=== PATIENT | female | born 1980 | race American Indian/Alaskan Native ===

== ENCOUNTER 2019-05-23 15:29 | Emergency (ER) | payer OTHER ==
[~2019-05-23] VITALS: Ht 154.9 cm; Wt 65.9 kg
[2019-05-23 16:30] LABS: BASOPHILS % (AUTO) 0.4 % (0-1); EOSINOPHILS # (AUTO) 0.1 X10'3 (0-0.9); EOSINOPHILS % (AUTO) 0.5 % (0-6); HEMATOCRIT 38.2 % (35.0-45.0); HEMOGLOBIN 12.7 g/dl (12.0-16.0); LYMPHOCYTES # (AUTO) 1.8 X10'3 (1.1-4.8); LYMPHOCYTES % (AUTO) 15.2 % (21-51); MEAN CORPUSCULAR HEMOGLOBIN 28.4 PG (27.0-31.0); MEAN CORPUSCULAR HGB CONC 33.3 g/dL (33.0-36.5); MEAN CORPUSCULAR VOLUME 85.5 FL (78-98); MEAN PLATELET VOLUME 8.2 FL (7.4-10.4); MONOCYTES # (AUTO) 0.9 X10'3 (0-0.9); MONOCYTES % (AUTO) 7.3 % (2-12); NEUTROPHILS # (AUTO) 8.9 X10'3 (1.8-7.7); NEUTROPHILS % (AUTO) 76.6 % (42-75); PLATELET COUNT 380 X10'3 (140-440); RED BLOOD COUNT 4.47 X10'6 (4.20-5.60); RED CELL DISTRIBUTION WIDTH 17.1 % (11.5-14.5); WHITE BLOOD COUNT 11.7 X10'3 (4.5-11.0)
--- NOTE | 2019-05-23 16:34 | NUR ---
Patient stating she hears her children calling in the room next to her. Patient states she is not crazy. Patient can't tell me when she last saw her girls. Patient states she is homeless and she lives in [place]. RN asked for a phone number of any of her relatives. Patient state they have all . RN asked patient when was the last time she saw her girls. Patient denies psych history and got upset because she really believes her girls are calling for her.
[2019-05-23 16:42] LABS: ALANINE AMINOTRANSFERASE 21 U/L (12-78); ALBUMIN 3.5 G/DL (3.4-5.0); ALKALINE PHOSPHATASE 92 IU/L (46-116); ANION GAP 10 (8-16); ASPARTATE AMINO TRANSFERASE 21 U/L (10-37); BILIRUBIN,TOTAL 0.6 MG/DL (0.1-1.0); BLOOD UREA NITROGEN 14 MG/DL (7-18); BUN/CREATININE RATIO 12.7 (6.6-38.0); CALCIUM 8.7 MG/DL (8.5-10.1); CHLORIDE 104 MMOL/L (99-107); GLUCOSE 84 MG/DL (70-104); POTASSIUM 3.5 MMOL/L (3.5-5.1); SODIUM 140 MMOL/L (135-145); TOTAL PROTEIN 6.9 G/DL (6.4-8.2); eGFR 55 ML/MIN
[2019-05-23 16:51] LABS: ETHANOL < 0.010 GM/DL (0.0-0.010)
--- NOTE | 2019-05-23 17:45 | NUR ---
Patient sleeping on left side. We still need a urine sample. Continue to monitor.
[2019-05-23 19:30] LABS: CLARITY,URINE SLIGHTLY CLOUDY (Clear); COLOR,URINE YELLOW (Yellow); GLUCOSE, URINE NEGATIVE (Neg); KETONES,URINE 15 mg/dl (Neg); LEUKOCYTE ESTERASE ,URINE TRACE (Neg); NITRITES, URINE POSITIVE (Neg); OCCULT BLOOD,URINE NEGATIVE (Neg); PROTEIN,URINE NEGATIVE (Neg); URINE HCG NEGATIVE (NEG)
[2019-05-23 19:32] LABS: UA COLLECTION TYPE CLN CATCH MIDSTREAM
[2019-05-23 19:41] LABS: BACTERIA,URINE 4+ /HPF (Neg); MUCUS STRANDS NONE SEEN /LPF (Neg); RBC,URINE 0-2 /HPF (0-2); SQUAMOUS EPITHELIAL CELL,UR MODERATE /LPF (FEW)
[2019-05-23 19:42] LABS: URINE AMPHETAMINE SCREEN POSITIVE (Neg); URINE BARBITUATE SCREEN NEGATIVE (Neg); URINE BENZODIAZEPINES SCREEN NEGATIVE (Neg); URINE CANNABINOID SCREEN POSITIVE (Neg); URINE COCAINE SCREEN NEGATIVE (Neg); URINE METHADONE SCREEN NEGATIVE (Neg); URINE OPIATE SCREEN NEGATIVE (Neg); URINE PHENCYCLIDINE SCREEN NEGATIVE (Neg); WBC,URINE 0-4 /HPF (0-4)
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
[2019-05-23] MEDS ORDERED: LORazepam 1 MG tablet PO ONE (19:55)
--- NOTE | 2019-05-23 20:23 | NUR ---
Pt lying in bed. Pt has remained calm and cooperative. Will continue to monitor.
--- NOTE | 2019-05-23 20:24 | NUR ---
Packet faxed to pending sale to [facility].
--- NOTE | 2019-05-23 23:49 | NUR ---
Pt has been resting comfortably since being medicated. Pt has no further episodes of agitation or hearing her daughter crying. Will continue to monitor.
--- NOTE | 2019-05-24 06:50 | NUR ---
Patient sleeping supine. No distress observed. Continue to monitor.
--- NOTE | 2019-05-24 08:51 | NUR ---
Patient sitting up and eating. No distress observed. Continue to monitor.
--- NOTE | 2019-05-24 09:15 | NUR ---
breaking primary rn, pt is supine in bed, regular breathing, no agitation observed, will continue to monitor
--- NOTE | 2019-05-24 11:18 | NUR ---
Patient being evaluated by Alex. UBALDO
--- NOTE | 2019-05-24 11:18 | NUR ---
Sister Kristine [phone]
--- NOTE | 2019-05-24 13:23 | NUR ---
Patient sitting quietly eating lunch.
--- NOTE | 2019-05-24 14:35 | NUR ---
Patient has 5150 upheld by [facility]. Patient is re-adjusting her position to laying on right side. No distress observed. Continue to monitor.
--- NOTE | 2019-05-24 18:40 | NUR ---
PT RESTING PECAFULLY COROPORTATIVE , UNLABORED, DENIES THE NEED FOR ANYTHING AT THE MOMENT. PLAN OF CARE UPDATED. PT TO BE TRANSFER TO [facility] AT 2015 THIS EVENING.
--- NOTE | 2019-05-24 19:59 | NUR ---
ALL VSS PT FINISHED UP DINNER AND WAS BROUGHT HER BELONGINGS FROM [facility] . PT INSTRUCTED TO GET DRESS. PT AMBULATED TO [facility] BAT[facility] WITH STEADY GAIT AND HER CLOTHES TO CHANGE
--- NOTE | 2019-05-24 20:45 | NUR ---
MEGAN FROM [facility] HAS ARRIVED TO TRANSFER PT TO [facility]. SHE HAS SOME CONCERNS ABOUT THE 5150 . REFERED THE CONCERNS OF THE DOCUMENT TO CHARGE NURSE , CASSIDY, WHO STATED THAT ADRIAN FROM [facility] [employer] CAN ADDRESS THE 5150 FORM HE IS ON SITE IN OVERFLOW TO DO SO. PRESENTED ADRIAN FROM [facility] 5150 WHO STATED HE WAS GOING TO CONTACT THE "[facility]AD [facility]' [facility] FOR CLARIFICATION UPDATED CHRSITINE OF THE CURRENT PLAN OF CARE
--- NOTE | 2019-05-24 20:47 | NUR ---
PT HAVING CONCERSN ABOUT LEAVING OVER FLOW TO [facility]. UPDATED PATIENT WITH CURRENT PLAN OF CARE AND THAT SHE WILL BE SAFE WITH MEGAN FOR TRANSPORT TO [facility] FOR FURTHER CARE. PT VERBALIZED UNDERSTANDING , NO QUESTIONS ASKED. GAVE PATIENT A PAIR OF WARM PATIENT TO WEAR FROM TRANSFER SHE WAS IN SHORTS
--- NOTE | 2019-05-24 20:50 | NUR ---
PT LEFT OVERFLOW UNIT WITH MEGAN FROM [facility] IN HER PERSONAL ATTIRE. ALL BELONGINGS RETURNED TO PATIENT PT AMBULATED OFF UNIT WITH STEADY GAIT ESCORTED BY [facility] OFF UNIT FOR THE [facility] TRANSFER
[2019-05-24 21:11] VITALS: BP 141/92
== END 2019-05-24 20:50 | disposition home or self-care (01) ==
LOC: ER 15:29
DX: F29 Unspecified psychosis not due to a substance or known physiological condition (principal); R94.6 Abnormal results of thyroid function studies; Z88.5 Allergy status to narcotic agent; Z88.6 Allergy status to analgesic agent
CPT/HCPCS: 36415; 80053; 80305; 80320; 81001; 81025; 84443; 85025; 99285

== ENCOUNTER 2019-08-28 09:58 | Emergency (ER) | payer OTHER ==
[~2019-08-28] VITALS: Ht 165.1 cm; Wt 68.2 kg
[2019-08-28 11:11] LABS: BASOPHILS % (AUTO) 0.5 % (0-1); EOSINOPHILS # (AUTO) 0.1 X10'3 (0-0.9); EOSINOPHILS % (AUTO) 0.7 % (0-6); HEMATOCRIT 39.7 % (35.0-45.0); HEMOGLOBIN 13.3 g/dl (12.0-16.0); LYMPHOCYTES # (AUTO) 1.2 X10'3 (1.1-4.8); LYMPHOCYTES % (AUTO) 13.6 % (21-51); MEAN CORPUSCULAR HEMOGLOBIN 28.7 PG (27.0-31.0); MEAN CORPUSCULAR HGB CONC 33.5 g/dL (33.0-36.5); MEAN CORPUSCULAR VOLUME 85.8 FL (78-98); MEAN PLATELET VOLUME 7.9 FL (7.4-10.4); MONOCYTES # (AUTO) 0.6 X10'3 (0-0.9); MONOCYTES % (AUTO) 6.8 % (2-12); NEUTROPHILS # (AUTO) 6.8 X10'3 (1.8-7.7); NEUTROPHILS % (AUTO) 78.4 % (42-75); PLATELET COUNT 438 X10'3 (140-440); RED BLOOD COUNT 4.63 X10'6 (4.20-5.60); RED CELL DISTRIBUTION WIDTH 15.5 % (11.5-14.5); WHITE BLOOD COUNT 8.7 X10'3 (4.5-11.0)
[2019-08-28 11:26] LABS: ALANINE AMINOTRANSFERASE 28 U/L (12-78); ALBUMIN 3.7 G/DL (3.4-5.0); ALBUMIN/GLOBULIN RATIO 1.1 (1.1-1.5); ALKALINE PHOSPHATASE 87 IU/L (46-116); ANION GAP 8 (8-16); ASPARTATE AMINO TRANSFERASE 32 U/L (10-37); BILIRUBIN,TOTAL 0.4 MG/DL (0.1-1.0); BLOOD UREA NITROGEN 11 MG/DL (7-18); BUN/CREATININE RATIO 12.5 (6.6-38.0); CALCIUM 8.2 MG/DL (8.5-10.1); CHLORIDE 106 MMOL/L (99-107); CREATININE 0.88 MG/DL (0.40-0.90); ETHANOL < 0.010 GM/DL (0.0-0.010); GLUCOSE 96 MG/DL (70-104); SODIUM 139 MMOL/L (135-145); TOTAL CARBON DIOXIDE 25.2 MMOL/L (24-32); eGFR 71 ML/MIN
[2019-08-28 11:31] LABS: POTASSIUM 3.8 MMOL/L (3.5-5.1)
[2019-08-28] MEDS ORDERED: ziprasidone IM 20mg inj **IM only IM ONE (12:05)
--- NOTE | 2019-08-28 14:30 | NUR ---
pt transferred from main er to overflow room 26
--- NOTE | 2019-08-28 15:30 | NUR ---
pt resting in bed
--- NOTE | 2019-08-28 16:30 | NUR ---
pt resting in bed
--- NOTE | 2019-08-28 17:20 | NUR ---
pt is resting in bed
--- NOTE | 2019-08-28 19:21 | NUR ---
The patient is very drowsy and not answering questions. She does briefly open her eyes. She was made aware that we needed a urine sample but she stated that she does not have to urinate at this time.
--- NOTE | 2019-08-28 21:36 | NUR ---
The patient appears to be sleeping
--- NOTE | 2019-08-29 01:44 | NUR ---
The patient appearst to be sleeping
--- NOTE | 2019-08-29 04:54 | NUR ---
The patient appears to be asleep
[2019-08-29 05:37] VITALS: BP 121/67
[2019-08-29 05:57] LABS: CLARITY,URINE CLOUDY (Clear); COLOR,URINE YELLOW (Yellow); GLUCOSE, URINE NEGATIVE (Neg); KETONES,URINE NEGATIVE (Neg); LEUKOCYTE ESTERASE ,URINE TRACE (Neg); NITRITES, URINE POSITIVE (Neg); OCCULT BLOOD,URINE LARGE (Neg); PROTEIN,URINE NEGATIVE (Neg); URINE HCG NEGATIVE (NEG); UROBILINOGEN,URINE 0.2 E.U/dL (0.2-1.0)
[2019-08-29 06:06] LABS: URINE AMPHETAMINE SCREEN POSITIVE (Neg); URINE BARBITUATE SCREEN NEGATIVE (Neg); URINE BENZODIAZEPINES SCREEN NEGATIVE (Neg); URINE CANNABINOID SCREEN POSITIVE (Neg); URINE COCAINE SCREEN NEGATIVE (Neg); URINE METHADONE SCREEN NEGATIVE (Neg); URINE OPIATE SCREEN POSITIVE (Neg); URINE PHENCYCLIDINE SCREEN NEGATIVE (Neg)
[2019-08-29 06:21] LABS: UA COLLECTION TYPE CLN CATCH MIDSTREAM
[2019-08-29 06:22] LABS: SQUAMOUS EPITHELIAL CELL,UR MANY /LPF (FEW)
[2019-08-29 06:24] LABS: BACTERIA,URINE 3+ /HPF (Neg)
--- NOTE | 2019-08-29 07:30 | NUR ---
assumed care from C[facility] [place]. pt laying in bed quietly.
--- NOTE | 2019-08-29 08:21 | NUR ---
PACKET WAS FAXED TO [facility]
--- NOTE | 2019-08-29 08:53 | NUR ---
pt laying quietly in bed on her left side.
--- NOTE | 2019-08-29 10:02 | NUR ---
pt resting quietly in bed.
--- NOTE | 2019-08-29 10:51 | NUR ---
resting quietly in bed on her left side with eyes closed.
--- NOTE | 2019-08-29 11:45 | NUR ---
Kade with [facility] with pt.
[2019-08-29] MEDS ORDERED: NITR100C6 PO (12:59)
--- NOTE | 2019-08-29 13:31 | NUR ---
Patient is being discharged. She has signed her papers and was educated on why she is getting a prescription. She is saying that she does not take pills. And will not be taking the prescription with her. Patient will be given her discharge papers and prescription. She was told that she should get the prescription filled.
== END 2019-08-29 13:51 | disposition home or self-care (01) ==
LOC: ER 09:59
DX: F29 Unspecified psychosis not due to a substance or known physiological condition (principal); F60.0 Paranoid personality disorder; F17.210 Nicotine dependence, cigarettes, uncomplicated; Z59.0 Homelessness; Z88.6 Allergy status to analgesic agent; Z88.5 Allergy status to narcotic agent; Z90.49 Acquired absence of other specified parts of digestive tract
CPT/HCPCS: 36415; 80053; 80305; 80320; 81001; 81025; 85025; 96372; 99285; J3486

== ENCOUNTER 2019-09-30 23:02 | Emergency (ER) | payer OTHER ==
[~2019-09-30] VITALS: Ht 165.1 cm; Wt 68.0 kg
[~2019-09-30 23:02] MED LIST: NITR100C6 PO
[2019-09-30 23:10] VITALS: BP 128/87
[2019-09-30 23:51] LABS: HCG SERUM QL NEGATIVE
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
== END 2019-10-01 00:07 | disposition home or self-care (01) ==
LOC: ER 23:02
DX: F10.129 Alcohol abuse with intoxication, unspecified (principal); Z59.0 Homelessness; Z88.5 Allergy status to narcotic agent; Z79.899 Other long term (current) drug therapy; Z20.89 Contact with and (suspected) exposure to other communicable diseases
CPT/HCPCS: 36415; 84703; 99291